=== PATIENT | male | born 1995 | race Caucasian/White ===

== ENCOUNTER 2025-05-27 09:34 | Outpatient (REF) | payer OTHER, SELFPAY ==
[2025-05-27 13:25] LABS: MANUAL DIFF FLAG NO
[2025-05-27 13:43] LABS: Appearance Urine Clear; Glucose Urine UA Negative (Negative); PH 8.0 (5.0-9.0); Specific Gravity - Urine 1.015 (1.005-1.025)
[2025-05-27 13:44] LABS: Hematocrit 41.4 % (42.0-52.0); Hemoglobin 14.1 g/dl (14.0-18.0); Imm Gran Abs Auto 0.02 X10*3/uL (0.00-0.03); Imm Gran Pct Auto 0.4 % (0.0-0.4); Lymphocytes Absolute Auto 1.5 X10*3/uL (1.2-4.9); Mean Corpuscular HGB Conc 34.1 g/dl (31.0-36.0); Mean Corpuscular Hemoglobin 29.6 pg (27.0-33.0); Mean Corpuscular Volume 86.8 fL (80.0-98.0); NRBC Abs Auto 0.000 X10*3/uL (0.0-0.012); NRBC Pct Auto 0.0 /100WBC (0.0-0.2); Platelet Count 203 X10*3/uL (160-400); Red Blood Count 4.77 X10*6/uL (4.60-5.80); White Blood Count 4.6 X10*3/uL (4.8-10.8)
[2025-05-27 14:12] LABS: Alanine Aminotransferase 16 U/L (0-40); Albumin Level 4.3 g/dL (3.5-5.0); Alkaline Phosphatase 58 U/L (39-117); Anion Gap 9 (12-20); Aspartate Amino Transferase 21 U/L (5-37); Blood Urea Nitrogen 14 mg/dL (9-16); Calcium 9.2 mg/dL (8.4-10.2); Carbon Dioxide 27 mmol/L (22-29); Chloride 109 mmol/L (96-108); Cholesterol 127 mg/dL (<200); Estimated Glomerular Filt Rate > 60; HDL Cholesterol 41 mg/dL (>40); Potassium 3.9 mmol/L (3.3-5.1); Sodium 141 mmol/L (135-145); Total Protein 6.8 g/dL (6.5-8.0); Triglycerides 34 mg/dL (<150)
[2025-05-27 14:18] LABS: HBS Num1 0.14 mIU/mL (0-7.99); HBsAGNum1 0.48 S/CO (0.00-0.99); HIV Num 1 0.08 S/CO (0.00-0.99); Hepatitis B Surface Antigen Negative (Negative); ~HepC Num1 0.10 S/CO (0.00-0.79); ~Hepatitis B Surface Antibody NONREACTIVE (Nonreactive); ~Hepatitis C Antibody Nonreactive (Nonreactive)
[2025-05-27 14:27] LABS: Folate 6.5 ng/mL (> or = 4.0); Vitamin B12 423 pg/mL (200-900)
[2025-06-01 01:58] LABS: VITAMIN D (1,25 OH) D3 41 pg/mL; Vit D (1,25-Dihydroxy) Total 41 pg/mL (18-72); Vitamin D (1,25 OH) D2 <8 pg/mL
== END 2025-05-27 09:35 | disposition home or self-care (01) ==
LOC: HO.HKASLDS 09:34
PROVIDERS: PCP Student in an Organized Health Care Education/Training Program; Visit Provider Student in an Organized Health Care Education/Training Program
DX: R05.3 Chronic cough (principal); K21.9 Gastro-esophageal reflux disease without esophagitis; R11.0 Nausea; Z11.4 Encounter for screening for human immunodeficiency virus [HIV]
CPT/HCPCS: 36415; 80053; 80061; 81003; 82607; 82652; 82746; 83036; 84443; 85025; 86706; 86803; 87340; 87389

== ENCOUNTER 2025-05-27 09:34 | Outpatient (AMB) | payer OTHER, SELFPAY ==
--- NOTE | 2025-05-27 09:36 | A.OFFPC_ITS ---
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 Cough does cause intermittent nausea Accompanied by: Spouse Allergies No Known Allergies Allergy (Verified 05/27/25 09:36) Tobacco use date assessed: 05/27/25 Dental Screening Dental Screen Date: 05/27/25 Did you have a dental visit in the last 12 months?: Yes Was dental information given to patient?: Patient has dentist HPI HPI Comments History of Present Illness Details History of Present Illness The patient is a 29-year-old male presenting with a chronic cough and associated nausea, suspected to be due to gastroesophageal reflux disease. Gastroesophageal Reflux Disease (GERD): - History of Problem: The patient report s a chronic cough persisting for approximately five years, which sometimes induces nausea and vomiting, particularly after eating. - Detailed Description: The cough is exa cerbated by meals, especially in the morning, and is associated with a sensation of nausea. - Progression: The symptoms have been co nsistent over the years, with no significant relief from dietary changes or kync-lnm-xakeptr medications. - Interventions: Previous attempts to ma nage the symptoms with dietary modifications and unspecified medications were ineffective. - Relevant Medical History: The patient has no significant past medical history and denies any other chronic conditions. Review of Systems - Gastrointestinal: Reports chronic coug h associated with nausea and occasional vomiting, especially after meals. Denies diarrhea. - General: Denies any significant past m edical history or chronic conditions. 10-point ROS reviewed and negative excep t as noted in HPI Past Medical History - No significant past medical history re ported. Health Maintenance - Advised to maintain a food journal to identify potential dietary triggers for symptoms. Physical Exam General: Well-appearing, in no acute distress. Vital signs: Within normal limits. HEENT: Normocephalic, atraumatic. PERRLA, EOMI. Conjunctiva clear, sclera anicteric. Oropharynx clear, mucous membranes moist. TMs intact bilaterally. Neck: Supple, no lymphadenopathy, no thyromegaly, no JVD or carotid bruits. Cardiovascular: RRR, normal S1/S2, no murmurs, rubs, or gallops. Peripheral pulses 2+ and symmetric. No edema. Respiratory: Lungs clear to auscultation bilaterally, no wheezes, rales, or rhonchi. Normal effort. Abdomen: Soft, non-tender, non-distended. Normoactive bowel sounds. No hepatos plenomegaly, no masses. MSK: Full range of motion, no joint swelling or deformity. Normal gait. Skin: Warm, dry, intact. No rashes, lesions, or pallor. Neuro: Alert and oriented x3. Cranial nerves II-XII intact. Strength 5/5 throughout. Sensation intact. Reflexes 2+ symmetric. Normal coordination and gait. Psych: Appropriate mood and affect. Normal judgment and insight. Plan 1. Gastroesophageal Reflux Disease (Gerd ) - Initiate treatment with a medication t o reduce gastric acid production. Follow-up in two weeks to assess response to treatment. - Further Evaluation: If symptoms persis t, consider referral to gastroenterology for possible esophagogastroduodenoscopy (EGD). - Additional Testing: Order baseline lab s including CBC, CMP, HbA1c, lipid panel, thyroid function tests, vitamin B12, vitamin D, HIV, hepatitis B and C serologies, and H. pylori stool antigen test. Discussion Notes I discussed with the patient the likelihood of gastroesophageal reflux disease as the cause of his symptoms. We agreed to start a trial of acid-reducing medication and to follow up in two weeks to evaluate the effectiveness of the treatment. If symptoms persist, I will refer him to gastroenterology for further evaluation, including a possible esophagogastroduodenoscopy. I also explained the importance of maintaining a food journal to identify potential dietary triggers and ordered a comprehensive set of baseline labs to rule out other conditions. Patient was informed and verbally consented to the use of an ambient scribe for clinic note documentation during this visit. Patient Instructions - Start taking the prescribed medication to reduce stomach acid. - Keep a food journal to track what you eat and how you feel afterwards. - Return for a follow-up appointment in two weeks. - Complete the lab tests ordered today. Total time spent caring for the patient today was 30 minutes. This includes time spent before the visit reviewing the chart, time spent documenting, and scot e spent reviewing laboratory results, diagnostic imaging, medications, performing a medically necessary evaluation, counseling on diagnoses, care coordination, ordering appropriate tests, ordering appropriate medications. [facility] Family History (Updated 05/27/25 @ 09:37 by Marnie Villegas [facility]) Mother No problems noted. Father No problems noted. Social History Housing: House Patient Tobacco Use Status: Never used Tobacco service: No Current occupational status: employed Cognitive needs: No Hearing needs: No Vision needs: No Questionnaire PHQ-9 Over the last 2 weeks, how often have you been bothered by any of the following problems? 1. Little interest or pleasure in doing things: nearly every day 2. Feeling down, depressed, or hopeless: not at all 3. Trouble falling or staying asleep, or sleeping too much: not at all 4. Feeling tired or having little energy: not at all 5. Poor appetite or overeating: not at all 6. Feeling bad about yourself - or that you are a failure or have let yourself or your family down: not at all 7. Trouble concentrating on things, such as reading the newspaper or watching television: not at all 8. Moving or speaking so slowly that other people could have noticed. Or the opposite - being so fidgety or restless that you have been moving around a lot more than usual: not at all 9. Thoughts that you would be better off or of hurting yourself in some way: not at all Total score: 3 Source: Developed by Drs. Joe Campos, Anna Alonzo, Misbah Beltran and colleagues, with an educational gemma from [employer]. Thrive Questionnaire Date Thrive assessed: 05/27/25 I am a: Patient What is your living situation today?: I have a steady place to live Within the past 12 months, did the food you bought not last and you didn't have the money to get more?: Never true Within the past 12 months, did you worry whether your food would run out before you got money to buy more?: Never true Do you have trouble paying for medicines?: No Do you have trouble getting transportation to medical appointments?: No Do you have trouble paying your heating and electricity bill?: No Do you have trouble taking care of your child, family member or friend?: No Are you currently unemployed and looking for a job?: No Are you interested in more education?: No Please select the resources that you would like help with: None Currently or been in a relationship where the following occur: I choose not to answer THRIVE Score: 0 AUDIT C Alcohol Use Questionnaire (AUDIT-C) 1. How often do you have a drink containing alcohol?: Never Total Score: 0 SARBJIT-7 AMB Questionnaire SARBJIT-7 Date SARBJIT - 7 assessed: 05/27/25 Feeling nervous, anxious, or on edge: 0 = Not at all Not being able to stop or control worryin = Not at all Worrying too much about different things: 0 = Not at all Trouble relaxin = Not at all Being so restless that it is hard to sit still: 0 = Not at all Becoming easily annoyed or irritable: 0 = Not at all Feeling afraid as if something awful might happen: 0 = Not at all Total SARBJIT-7 score (0-4 normal; 5-9 mild; 10-14 moderate; 15-21 severe): 0 Source: Developed by Drs. Joe Campos, Anna Alonzo, Misbah Beltran and colleagues, with an educational gemma from [employer]. Physical exam (Primary Care) Vital Signs: Last Vital Signs Temp 97.4 F 05/27/25 09:40 Pulse 71 05/27/25 09:40 Resp 20 05/27/25 09:40 BP 104/62 05/27/25 09:40 Pulse Ox 98 05/27/25 09:40 Oxygen Delivery Method Room Air 05/27/25 09:40 BMI result Body Mass Index 18.5 Tobacco/Smoking Status: Tobacco use Status Tobacco use date assessed 05/27/25 05/27/25 09:38 Patient Tobacco Use Status Never used Tobacco 05/27/25 09:38 PHQ-9: PHQ-9 Score PHQ-9: Total score 3 05/27/25 09:40 Thrive Assessment: Date of Thrive Assessment Date Thrive assessed 05/27/25 05/27/25 09:38 Currently or been in a relationship where the following occur: I choose not to answer Coding Level of Care Code New Pt Level 4 (89042) Diagnoses GERD (gastroesophageal reflux disease) K21.9 Chronic cough R05.3 Nausea R11.0 Assessment & Plan Assessment & Plan (1) GERD (gastroesophageal reflux disease): Code(s): K21.9 - Gastro-esophageal reflux disease without esophagitis (2) Chronic cough: Code(s): R05.3 - Chronic cough (3) Nausea: Code(s): R11.0 - Nausea Plan Orders: Orders Hemoglobin A1c Today Z13.9 - Encounter for screening, unspecified Hepatitis B Surface Antigen Today Z13.9 - Encounter for screening, unspecified Hepatitis C Antibody Today Z13.9 - Encounter for screening, unspecified Lipid Panel Today Z13.9 - Encounter for screening, unspecified UA CC w/rflx Micro + Cult Today Z13.9 - Encounter for screening, unspecified TSH reflex Free T4 Today Z13.9 - Encounter for screening, unspecified Vitamin B12 and Folate Today Z13.9 - Encounter for screening, unspecified Vitamin D 1,25 dihydroxy Today Z13.9 - Encounter for screening, unspecified H pylori Ag Stool Today Z13.9 - Encounter for screening, unspecified HIV Ab/Ag Today Z13.9 - Encounter for screening, unspecified Complete Blood Count Auto Diff Today Z13.9 - Encounter for screening, unspecified Comprehensive Met. Panel Today Z13.9 - Encounter for screening, unspecified Hepatitis B Surface Antibody Today Z13.9 - Encounter for screening, unspecified Medications: New omeprazole 20 mg PO BID 60 caps 0RF
[2025-05-27 09:40] VITALS: BP 104/62; PULSE 71; RESP 20; TEMP 36.3; O2SAT 98; BMI 18.5
== END 2025-05-27 10:00 | disposition home or self-care (01) ==
LOC: HO.HMCFMS 09:35
PROVIDERS: PCP Student in an Organized Health Care Education/Training Program; Visit Provider Student in an Organized Health Care Education/Training Program
DX: K21.9 Gastro-esophageal reflux disease without esophagitis (principal); R05.3 Chronic cough; R11.0 Nausea

== ENCOUNTER 2025-05-28 10:13 | Outpatient (REF) | payer OTHER, SELFPAY | END 2025-05-28 10:14 | disposition home or self-care (01) | LOC: HO.HKASLDS 10:13 | PROVIDERS: PCP Student in an Organized Health Care Education/Training Program; Visit Provider Student in an Organized Health Care Education/Training Program | DX: Z11.0 Encounter for screening for intestinal infectious diseases (principal) | CPT/HCPCS: 87338 ==

== ENCOUNTER 2025-06-10 09:13 | Outpatient (AMB) | payer OTHER, SELFPAY ==
[2025-06-10 09:17] VITALS: BP 105/54; PULSE 72; RESP 16; TEMP 36.7; O2SAT 98; BMI 18.6
--- NOTE | 2025-06-10 09:17 | A.OFFPC_ITS ---
Vital Signs 06/10/25 09:17 Height 5 ft 11.26 in Weight 134 lb BMI 18.6 BP 105/54 L Blood Pressure Location Rt brachial Position Sitting Respiration 16 Pulse 72 Pulse Source Pulse Oximeter Temp 98.1 F Temp Source Oral Pulse Oximetry (%) 98 Oxygen Delivery Method Room Air Intake Visit Reasons: 2 week follow up Intake Note: Intermittent, non-productive dry cough x 5 years. Cough does cause intermittent nausea Accompanied by: Spouse Allergies No Known Allergies Allergy (Verified 06/10/25 09:21) Tobacco use date assessed: 06/10/25 Dental Screening Dental Screen Date: 06/10/25 Did you have a dental visit in the last 12 months?: Yes Did you have a dental problem in the last 6 months where you did not have access to dental care?: No Was dental information given to patient?: Patient has dentist HPI HPI Comments History of Present Illness Details Consent Patient was informed and verbally consented to the use of an ambient scribe for clinic note documentation during this visit. History of Present Illness The patient is a 29-year-old male presenting with follow-up for evaluation of Gastroesophageal Reflux Disease (GERD) treatment effectiveness. Gastroesophageal Reflux Disease: The patient reports experiencing symptoms consistent with gastroesophageal reflux, including heartburn and discomfort, which initially presented more intensely. Since beginning PPI therapy and tracking dietary intake in a food journal, the frequency and intensity of symptoms have decreased from an initial rating of eight to a three or four on a severity scale of ten. These symptoms primarily occur in the morning and have been somewhat alleviated by medication adherence. The patient noted that previously symptoms were more severe before starting medication and are now intermittent but manageable. Mild Leukopenia: Mild leukopenia was identified in the patient?s laboratory workups, with a white blood cell count of 4.6, slightly under the normal threshold of 4.8. The patient is asymptomatic, and this finding is currently being monitored for changes without immediate clinical significance. Mild Anemia: Laboratory tests also revealed a slightly low hematocrit level at 41.4. As the patient does not display any symptoms of anemia, and the clinical presentation remains stable, continued observation with periodic lab assessments is currently the approach. Surgical History: - No surgical history available. Medications: - Omeprazole 20 mg, twice daily for Fritz roesophageal Reflux Disease (GERD). Social History: - Patient is and reported being with children during visits. Family History: - No family medical history discussed. Diagnostic Results: - Labs: White blood cells mildly low at 4.6 (cutoff 4.8), hematocrit mildly low at 41.4. - Labs: Normal results for sodium, potas sium, renal function, glucose, hemoglobin A1c, liver function, lipids, vitamin B12, folate, thyroid function, urine analysis, and hepatitis B screening. - Labs: H. pylori not detected. Review of Systems - Gastrointestinal: Reports occasional h eartburn, but improved with treatment. - Hematological: Denies symptoms such as fatigue or bleeding. 10-point ROS reviewed and negative excep t as noted in HPI Past Medical History - Gastroesophageal Reflux Disease (GERD) - Mild Leukopenia - Mild Anemia Health Maintenance - Recommended maintenance of food journa l to identify dietary triggers for GERD. Physical Exam General: Well-appearing, in no acute distress. Vital signs: Within normal limits. HEENT: Normocephalic, atraumatic. PERRLA, EOMI. Conjunctiva clear, sclera anicteric. Oropharynx clear, mucous membranes moist. TMs intact bilaterally. Neck: Supple, no lymphadenopathy, no thyromegaly, no JVD or carotid bruits. Cardiovascular: RRR, normal S1/S2, no murmurs, rubs, or gallops. Peripheral pulses 2+ and symmetric. No edema. Respiratory: Lungs clear to auscultation bilaterally, no wheezes, rales, or rhonchi. Normal effort. Abdomen: Soft, non-tender, non-distended. Normoactive bowel sounds. No hepatosplenomegaly, no masses. MSK: Full range of motion, no joint swelling or deformity. Normal gait. Skin: Warm, dry, intact. No rashes, lesions, or pallor. Neuro: Alert and oriented x3. Cranial nerves II-XII intact. Strength 5/5 throughout. Sensation intact. Reflexes 2+ symmetric. Normal coordination and gait. Psych: Appropriate mood and affect. Normal judgment and insight. Plan 1. Gastroesophageal Reflux Disease (Gerd ) - Continue omeprazole 20 mg twice daily. - Maintain a food journal to identify an d avoid potential dietary triggers. - Plan to re-evaluate the effectiveness of the current therapy in the next follow-up visit. 2. Mild Leukopenia - Monitor with repeat labs in six months . 3. Mild Anemia - Monitor with repeat labs in six months Discussion Notes During the visit, we discussed the initial suspicion of GERD and the trial of PPI therapy to assess its effectiveness. We also reviewed the importance of maintaining a food journal to identify potential dietary triggers and considered the need for a GI evaluation if symptoms persist. Patient Instructions - Continue taking your PPI medication as prescribed. - Keep a food journal to track what you eat and any symptoms you experience. - Follow up in two weeks to discuss how you are feeling and review your food journal. Medical Decision Making The decision to initiate PPI therapy was based on the clinical suspicion of GERD, given the patient's symptoms. Monitoring of mild leukopenia and anemia was deemed appropriate due to their asymptomatic nature and the plan to repeat labs in six months. Total time spent caring for the patient today was 30 minutes. This includes time spent before the visit reviewing the chart, time spent documenting, and time spent reviewing laboratory results, diagnostic imaging, medications, performing a medically necessary evaluation, counseling on diagnoses, care coordination, ordering appropriate tests, ordering appropriate medications. [facility] Family History Mother No problems noted. Father No problems noted. Social History Housing: House Patient Tobacco Use Status: Never used Tobacco service: No Current occupational status: employed Cognitive needs: No Hearing needs: No Vision needs: No Questionnaire Thrive Questionnaire Date Thrive assessed: 06/10/25 I am a: Patient What is your living situation today?: I have a steady place to live Within the past 12 months, did the food you bought not last and you didn't have the money to get more?: Never true Within the past 12 months, did you worry whether your food would run out before you got money to buy more?: Never true Do you have trouble paying for medicines?: No Do you have trouble getting transportation to medical appointments?: No Do you have trouble paying your heating and electricity bill?: No Do you have trouble taking care of your child, family member or friend?: No Do you have trouble with day-to-day activities such as bathing, preparing meals, shopping, managing finances, etc.?: No Are you currently unemployed and looking for a job?: No Are you interested in more education?: No Please select the resources that you would like help with: None Currently or been in a relationship where the following occur: I choose not to answer THRIVE Score: 0 AUDIT C Alcohol Use Questionnaire (AUDIT-C) 3. How often do you have six or more drinks on one occasion?: Never Total Score: 0 SARBJIT-7 AMB Questionnaire SARBJIT-7 Date SARBJIT - 7 assessed: 05/27/25 Source: Developed by Drs. Joe Campos, Anna Alonzo, Misbah Beltran and colleagues, with an educational gemma from [employer]. Physical exam (Primary Care) Vital Signs: Last Vital Signs Temp 98.1 F 06/10/25 09:17 Pulse 72 06/10/25 09:17 Resp 16 06/10/25 09:17 BP 105/54 L 06/10/25 09:17 Pulse Ox 98 06/10/25 09:17 Oxygen Delivery Method Room Air 06/10/25 09:17 BMI result Body Mass Index 18.6 Tobacco/Smoking Status: Tobacco use Status Tobacco use date assessed 06/10/25 06/10/25 09:23 Patient Tobacco Use Status Never used Tobacco 06/10/25 09:23 Thrive Assessment: Date of Thrive Assessment Date Thrive assessed 06/10/25 06/10/25 09:23 Currently or been in a relationship where the following occur: I choose not to answer Coding Level of Care Code Est Pt Level 4 (25904) Diagnoses Gastroesophageal reflux disease K21.9 Leukopenia D72.819 Anemia D64.9 Assessment & Plan Assessment & Plan (1) Gastroesophageal reflux disease: Code(s): K21.9 - Gastro-esophageal reflux disease without esophagitis (2) Leukopenia: Code(s): D72.819 - Decreased white blood cell count, unspecified (3) Anemia: Code(s): D64.9 - Anemia, unspecified Plan
== END 2025-06-10 09:50 | disposition home or self-care (01) ==
LOC: HO.HMCFMS 09:14
PROVIDERS: PCP Student in an Organized Health Care Education/Training Program; Visit Provider Student in an Organized Health Care Education/Training Program
DX: K21.9 Gastro-esophageal reflux disease without esophagitis (principal); D72.819 Decreased white blood cell count, unspecified; D64.9 Anemia, unspecified

== ENCOUNTER → 2025-06-10 09:13 | Outpatient (BNVA) | payer OTHER, SELFPAY | PROVIDERS: PCP Family Medicine; Visit Provider Student in an Organized Health Care Education/Training Program | DX: K21.9 Gastro-esophageal reflux disease without esophagitis (principal); D72.819 Decreased white blood cell count, unspecified; D64.9 Anemia, unspecified; Z79.899 Other long term (current) drug therapy | CPT/HCPCS: 99212 ==

== ENCOUNTER 2025-06-24 09:18 | Outpatient (AMB) | payer OTHER, SELFPAY ==
--- NOTE | 2025-06-24 09:21 | A.OFFPC_ITS ---
Vital Signs 06/24/25 09:24 Height 5 ft 11.26 in Weight 135 lb BMI 18.7 BP 100/53 L Blood Pressure Location Rt brachial Position Sitting Respiration 16 Pulse 83 Pulse Source Monitor Temp 98.1 F Temp Source Oral Pulse Oximetry (%) 99 Oxygen Delivery Method Room Air Intake Visit Reasons: 2 wk f/u Intake Note: 2 week follow up Electrical Helper Required: No Accompanied by: Self / Same As Patient Allergies No Known Allergies Allergy (Verified 06/24/25 09:23) Medication List - Last Reconciled 06/24/25 by Mt Cabral MD pantoprazole 20 mg PO BID Tobacco use date assessed: 06/10/25 Dental Screening Dental Screen Date: 06/10/25 HPI HPI Comments History of Present Illness Details History of Present Illness The patient is a 29-year-old male presenting with follow-up for gastrointestinal symptoms. Gastroesophageal reflux disease: The patient presents for follow-up on his gastrointestinal symptoms, reporting that nothing has changed since his last visit. He continues to experience an intermittent cough and a mild burning sensation. The cough occurs at various times, often before eating and sometimes afterward. He reports feeling better than he did initially but is still not 100% improved on his current medication regimen. Medications: - Omeprazole for gastrointestinal sympto ms. Past Medical History - Gastroesophageal reflux disease, treat ed with omeprazole. Health Maintenance [facility] Medical History (Updated 06/24/25 @ 09:30 by Mt Cabral MD) GERD (gastroesophageal reflux disease) Family History Mother No problems noted. Father No problems noted. Social History Housing: House Alcohol intake: never Patient Tobacco Use Status: Never used Tobacco service: No Current occupational status: employed Cognitive needs: No Hearing needs: No Vision needs: No Questionnaire Thrive Questionnaire Date Thrive assessed: 05/27/25 I am a: Patient What is your living situation today?: I have a steady place to live Within the past 12 months, did the food you bought not last and you didn't have the money to get more?: Never true Within the past 12 months, did you worry whether your food would run out before you got money to buy more?: Never true Do you have trouble paying for medicines?: No Do you have trouble getting transportation to medical appointments?: No Do you have trouble paying your heating and electricity bill?: No Do you have trouble taking care of your child, family member or friend?: No Do you have trouble with day-to-day activities such as bathing, preparing meals, shopping, managing finances, etc.?: No Are you currently unemployed and looking for a job?: No Are you interested in more education?: No Please select the resources that you would like help with: None Currently or been in a relationship where the following occur: I choose not to answer THRIVE Score: 0 SARBJIT-7 AMB Questionnaire SARBJIT-7 Date SARBJIT - 7 assessed: 05/27/25 Source: Developed by Drs. Joe Campos, Anna Alonzo, Misbah Beltran and colleagues, with an educational gemma from [employer]. Review of Systems Narrative Review of Systems - Respiratory: Reports an intermittent cough. - Gastrointestinal: Reports a mild burning sensation. - Constitutional: Reports feeling better than at his initial visit but is not 100% improved. 10-point ROS reviewed and negative except as noted in HPI Physical exam (Primary Care) Tobacco/Smoking Status: Tobacco use Status Tobacco use date assessed 06/10/25 06/10/25 09:23 Patient Tobacco Use Status Never used Tobacco 06/10/25 09:23 Thrive Assessment: Date of Thrive Assessment Date Thrive assessed 05/27/25 06/24/25 09:19 Currently or been in a relationship where the following occur: I choose not to answer Narrative Physical Exam General: Well-appearing, in no acute distress. Vital signs: Within normal limits. HEENT: Normocephalic, atraumatic. PERRLA, EOMI. Conjunctiva clear, sclera anicteric. Oropharynx clear, mucous membranes moist. TMs intact bilaterally. Neck: Supple, no lymphadenopathy, no thyromegaly, no JVD or carotid bruits. Cardiovascular: RRR, normal S1/S2, no murmurs, rubs, or gallops. Peripheral pulses 2+ and symmetric. No edema. Respiratory: Lungs clear to auscultation bilaterally, no wheezes, rales, or rhonchi. Normal effort. Abdomen: Soft, non-tender, non-distended. Normoactive bowel sounds. No hepatosplenomegaly, no masses. MSK: Full range of motion, no joint swelling or deformity. Normal gait. Skin: Warm, dry, intact. No rashes, lesions, or pallor. Neuro: Alert and oriented x3. Cranial nerves II-XII intact. Strength 5/5 throughout. Sensation intact. Reflexes 2+ symmetric. Normal coordination and gait. Psych: Appropriate mood and affect. Normal judgment and insight. Coding Level of Care Code Est Pt Level 3 (07156) Diagnoses GERD (gastroesophageal reflux disease) K21.9 Assessment & Plan Assessment & Plan (1) GERD (gastroesophageal reflux disease): Code(s): K21.9 - Gastro-esophageal reflux disease without esophagitis Category: Medical Plan Consent Patient was informed and verbally consented to the use of an ambient scribe for clinic note documentation during this visit. Plan 1. Gastroesophageal Reflux Disease - The patient's symptoms are ongoing despite prior treatment. - Will switch medication from omeprazole to pantoprazole twice daily to continue acid suppression. - A referral to Gastroenterology will be placed for further evaluation, which may include an endoscopy. - The patient should follow up in three months. Discussion Notes I discussed with the patient that his symptoms of cough and burning have not fully resolved. I advised switching his medication from omeprazole to pantoprazole, to be taken twice a day, to continue suppressing stomach acid. I informed him that I am placing a referral to a pastoral assistant for further evaluation, which might include an endoscopy to see what is causing his symptoms. I instructed him on the referral process, explaining that he should expect a call and provided a number to contact if he does not hear back within a week or two. A follow-up visit was scheduled for three months. Patient Instructions - I have sent a new prescription for pantoprazole, which you should take two times a day. - I have also sent a referral to a stomach specialist (pastoral assistant). - You should expect a call from their office to schedule an appointment. - If you do not hear from them in one to two weeks, please call the phone number our staff will give you to follow up. - The specialist may want to perform a scope test to look inside your stomach. - Please schedule a follow-up visit with me in three months. Medical Decision Making The patient is a 29-year-old male presenting for follow-up of persistent gastrointestinal symptoms, including cough and pyrosis, consistent with GERD. He reports some improvement with prior treatment but is not fully recovered. The physical exam focused on ruling out alternative causes for his cough, with lungs clear to auscultation and no evidence of postnasal drip on oropharyngeal inspection. Due to persistent symptoms, the decision was made to switch his PPI from omeprazole to pantoprazole twice daily for potentially better symptom control. A referral to Gastroenterology is appropriate for further specialist evaluation and to consider EGD to investigate the underlying etiology. The patient will follow up here in three months to reassess his condition. Total time spent caring for the patient today was 20 minutes. This includes time spent before the visit reviewing the chart, time spent documenting, and time spent reviewing laboratory results, diagnostic imaging, medications, performing a medically necessary evaluation, counseling on diagnoses, care coordination Orders: Referrals Gastroenterology Referral K21.9 - Gastro-esophageal reflux disease without esophagitis Medications: New pantoprazole 20 mg PO BID 60 tabs 0RF Discontinued omeprazole Discontinued Reason: Doctor's Order 20 mg PO BID 90 caps 0RF
[2025-06-24 09:24] VITALS: BP 100/53; PULSE 83; RESP 16; TEMP 36.7; O2SAT 99; BMI 18.7
== END 2025-06-24 09:35 | disposition home or self-care (01) ==
LOC: HO.HMCFMS 09:19
PROVIDERS: PCP Student in an Organized Health Care Education/Training Program; Visit Provider Student in an Organized Health Care Education/Training Program
DX: K21.9 Gastro-esophageal reflux disease without esophagitis (principal)

== ENCOUNTER → 2025-06-24 09:18 | Outpatient (BNVA) | payer OTHER, SELFPAY | PROVIDERS: PCP Family Medicine; Visit Provider Student in an Organized Health Care Education/Training Program | DX: K21.9 Gastro-esophageal reflux disease without esophagitis (principal) | CPT/HCPCS: 99212 ==